=== PATIENT | female | born 1975 ===

== ENCOUNTER 2017-11-02 18:15 | Emergency (ER) | payer SELFPAY ==
[2017-11-02] MEDS ORDERED: Sodium Chloride 0.9% 1,000 ML IV STA (20:22)
--- NOTE | 2017-11-02 20:25 | ED PDOC ---
HPI: Abdomen Time Seen by Provider: 11/02/17 20:14 Chief Complaint (Nursing): Abdominal Pain Chief Complaint (Provider): abdominal pain History Per: Patient History/Exam Limitations: no limitations Onset/Duration Of Symptoms: Days (5), Waxing/Waning Current Symptoms Are (Timing): Still Present Location Of Pain/Discomfort: RUQ, Epigastric Associated Symptoms: Diarrhea Additional Complaint(s): 42 y/o female presents for evaluation of intermittent upper abdominal pain x 5 days. Patient notes pain to be worsened by food. Patient also reports diarrhea x a few weeks. Denies fever, nausea/vomiting, chest pain, shortness of breath, palpitations, recent travel, sick contacts. No medication taken for relief thus far. Past Medical History Reviewed: Historical Data, Nursing Documentation, Vital Signs Vital Signs: Last Vital Signs Temp 98.3 F 11/02/17 18:18 Pulse 83 11/02/17 18:18 Resp 18 11/02/17 18:18 BP 107/69 11/02/17 18:18 Pulse Ox 99 11/02/17 22:31 - Medical History PMH: Gall Bladder Disease (gallstones) - Surgical History Surgical History: No Surg Hx - Family History Family History: States: No Known Family Hx - Living Arrangements Living Arrangements: With Family - Allergies Allergies/Adverse Reactions: Allergies Allergy/AdvReac Type Severity Reaction Status Date / Time No Known Allergies Allergy Verified 11/02/17 18:18 Review of Systems ROS Statement: Except As Marked, All Systems Reviewed And Found Negative Gastrointestinal: Positive for: Abdominal Pain, Diarrhea Physical Exam - Reviewed Nursing Documentation Reviewed: Yes Vital Signs Reviewed: Yes - Physical Exam Appears: Positive for: Well, Non-toxic, No Acute Distress Head Exam: Positive for: ATRAUMATIC, NORMAL INSPECTION, NORMOCEPHALIC Skin: Positive for: Normal Color Eye Exam: Positive for: Normal appearance ENT: Positive for: Normal ENT Inspection Cardiovascular/Chest: Positive for: Regular Rate, Rhythm Respiratory: Positive for: Normal Breath Sounds Gastrointestinal/Abdominal: Positive for: Bowel Sounds, Soft, Tenderness ( epigastric, RUQ) Back: Positive for: Normal Inspection Extremity: Positive for: Normal ROM Neurologic/Psych: Positive for: Alert, Oriented - Laboratory Results Result Diagrams: 11/02/17 21:13 11/02/17 21:13 - ECG O2 Sat by Pulse Oximetry: 99 - Progress ED Course And Treament: labs, urine, RUQ u/s, IV fluids, IV toradol, IV pepcid EXAM: US Abdomen Limited, Right Upper Quadrant CLINICAL HISTORY: 42 years old, female; Pain; Abdominal pain; Epigastric; Additional info: Upper abd pain TECHNIQUE: Real-time ultrasound of the right upper quadrant with image documentation. COMPARISON: No relevant prior studies available. FINDINGS: Liver: Normal echogenicity. No mass. No intrahepatic bile duct dilatation. Gallbladder: Contracted. Multiple gallstones. No wall thickening. No pericholecystic fluid. No sonographic Harvey's sign. Common bile duct: No dilatation. No stones. Pancreas: Unremarkable as visualized. Right kidney: Normal echogenicity. No hydronephrosis. IMPRESSION: 1. Cholelithiasis. On re-eval, patient reports improvement of pain Patient educated on findings, discharged with instructions to f/up [facility] Advised tylenol/ibuprofen PRN pain [place] diet Return precautions given Disposition - Clinical Impression Clinical Impression: Cholelithiasis, Diarrhea - Patient ED Disposition Is Patient to be Admitted: No Counseled Patient/Family Regarding: Studies Performed, Diagnosis, Need For Followup, Rx Given - Disposition Referrals: [facility] [Outside] Disposition: Routine/Home Disposition Time: 00:05 Condition: IMPROVED Instructions: Gallstones, Diarrhea in Adolescents and Adults Print Language: MALDIVIAN
[2017-11-02 21:48] LABS: BASO % 0.4 % (0.0-2.0); EOS # 0.2 K/uL (0.0-0.7); EOS % 2.1 % (0.0-4.0); HEMOGLOBIN 13.7 g/dL (12.0-16.0); LYMPH # 2.9 K/uL (1.0-4.3); LYMPH % 35.3 % (20.0-40.0); MEAN CELL VOLUME 87.5 fl (81.0-99.0); MEAN CORPUSCULAR HEMOGLOBIN 29.5 pg (27.0-31.0); MEAN CORPUSCULAR HGB CONC 33.7 g/dL (33.0-37.0); MEAN PLATELET VOLUME 9.1 fl (7.2-11.7); MONO # 0.8 K/uL (0.0-0.8); MONO % 9.6 % (0.0-10.0); NEUT # 4.2 K/uL (1.8-7.0); NEUT % 52.6 % (50.0-75.0); NRBC % 0.1 % (0.0-0.0); RBC 4.65 Mil/uL (3.80-5.20); RED CELL DISTRIBUTION WIDTH 14.2 % (11.5-14.5); WHITE BLOOD COUNT 8.1 K/uL (4.8-10.8)
[2017-11-02 21:56] LABS: ALB/GLOB RATIO 1.2 (1.0-2.1); ALBUMIN 4.3 g/dL (3.5-5.0); ALT/SGPT 152 U/L (9-52); AST/SGOT 92 U/L (14-36); BLOOD UREA NITROGEN 18 mg/dl (7-17); CALCIUM 9.8 mg/dL (8.4-10.2); GFR NON-AFRICAN AMERICAN > 60; LIPASE 279 U/L (23-300)
[2017-11-02 21:59] LABS: SQUAMOUS EPITHIAL < 1 /hpf (0-5); URINE BACTERIA RARE (<OCC); URINE BILIRUBIN NEGATIVE (NEGATIVE); URINE BLOOD NEGATIVE (NEGATIVE); URINE CALCIUM OXALATE CRYSTALS FEW /hpf (<OCC); URINE CLARITY CLEAR (Clear); URINE COLOR YELLOW (YELLOW); URINE GLUCOSE (UA) 150 mg/dL (Normal); URINE HYALINE CAST 0-2 /hpf (0-2); URINE LEUKOCYTE ESTERASE NEG Leu/uL (Negative); URINE PROTEIN NEGATIVE (NEGATIVE); URINE UROBILINOGEN 0.2-1.0 mg/dL (0.2-1.0)
[2017-11-03 00:20] VITALS: BP 113/69; PULSE 64; RESP 16; TEMP 98; O2SAT 98
--- NOTE | 2017-11-03 09:22 | US ---
Date of service: 11/02/2017 HISTORY: Upper abdominal pain COMPARISON: None. TECHNIQUE: Sonographic evaluation of the right upper quadrant of the abdomen. FINDINGS: LIVER: Measures 15.4 cm in length. There is diffuse increased echogenicity of the liver parenchyma. No mass. No intrahepatic bile duct dilatation. GALLBLADDER: The gallbladder is contracted and packed with multiple gallstones. There is no wall thickening or pericholecystic fluid. The sonographic Harvey's sign is negative. COMMON BILE DUCT: Measures 4.0 mm. No stones. No dilatation. PANCREAS: Unremarkable as visualized. No mass. No ductal dilatation. RIGHT KIDNEY: Measures 10.9 cm in length. Normal echogenicity. No calculus, mass, or hydronephrosis. AORTA: No aneurysmal dilatation. IVC: Unremarkable. OTHER FINDINGS: None . IMPRESSION: Cholelithiasis. Diffuse increased echogenicity in the liver may reflect hepatic steatosis however parenchymal infectious/ inflammatory etiologies cannot be entirely excluded. Clinical and laboratory correlation is advised. A preliminary report was provided by [employer]
== END 2017-11-03 00:20 | disposition home or self-care (01) ==
LOC: H.ER 18:15
DX: K80.20 Calculus of gallbladder without cholecystitis without obstruction (principal); R19.7 Diarrhea, unspecified
CPT/HCPCS: 76705; 80053; 81003; 81025; 83690; 85025; 96361; 96374; 96375; J1885; J7030

== ENCOUNTER 2017-12-17 05:27 | Inpatient (IN) | payer OTHER, SELFPAY ==
[2017-12-17 06:09] LABS: BASO % 0.4 % (0.0-2.0); EOS # 0.1 K/uL (0.0-0.7); EOS % 1.7 % (0.0-4.0); HEMOGLOBIN 14.2 g/dL (12.0-16.0); LYMPH # 2.3 K/uL (1.0-4.3); LYMPH % 28.8 % (20.0-40.0); MEAN CELL VOLUME 85.4 fl (81.0-99.0); MEAN CORPUSCULAR HEMOGLOBIN 29.5 pg (27.0-31.0); MEAN CORPUSCULAR HGB CONC 34.5 g/dL (33.0-37.0); MEAN PLATELET VOLUME 8.8 fl (7.2-11.7); MONO # 0.7 K/uL (0.0-0.8); MONO % 8.7 % (0.0-10.0); NEUT # 4.9 K/uL (1.8-7.0); NEUT % 60.4 % (50.0-75.0); NRBC % 0.1 % (0.0-0.0); RBC 4.81 Mil/uL (3.80-5.20); RED CELL DISTRIBUTION WIDTH 13.3 % (11.5-14.5); WHITE BLOOD COUNT 8.1 K/uL (4.8-10.8)
[2017-12-17 06:21] LABS: ALB/GLOB RATIO 1.3 (1.0-2.1); ALT/SGPT 24 U/L (9-52); AST/SGOT 23 U/L (14-36); BLOOD UREA NITROGEN 9 mg/dl (7-17); CALCIUM 9.1 mg/dL (8.4-10.2); GFR NON-AFRICAN AMERICAN > 60; LIPASE 80 U/L (23-300)
--- NOTE | 2017-12-17 06:21 | ED PDOC ---
HPI: Abdomen Time Seen by Provider: 12/17/17 05:55 Chief Complaint (Nursing): Abdominal Pain Chief Complaint (Provider): abdominal pain History Per: Patient History/Exam Limitations: no limitations Onset/Duration Of Symptoms: Days (x1) Current Symptoms Are (Timing): Still Present Location Of Pain/Discomfort: Epigastric Associated Symptoms: Nausea. denies: Fever, Chills, Vomiting, Diarrhea, Urinary Symptoms Additional Complaint(s): Katey Shultz is a 42 year old female, with a past medical history of cholelithiasis, who presents to the emergency department with epigastric pain associated with nausea ongoing since yesterday. She denies any fever, chills, vomiting, diarrhea or urinary symptoms. No further medical complaints. PMD: Raven Brito Past Medical History Reviewed: Historical Data, Nursing Documentation, Vital Signs Vital Signs: Last Vital Signs Temp 98.6 F 12/17/17 05:41 Pulse 71 12/17/17 05:41 Resp 18 12/17/17 05:41 BP 127/75 12/17/17 05:41 Pulse Ox 100 12/17/17 06:37 - Medical History PMH: Gall Bladder Disease (gallstones) - Surgical History Other surgeries: Cholelithiasis - Family History Family History: States: Unknown Family Hx - Social History Current smoker - smoking cessation education provided: No Alcohol: None Drugs: Denies - Allergies Allergies/Adverse Reactions: Allergies Allergy/AdvReac Type Severity Reaction Status Date / Time No Known Allergies Allergy Verified 11/02/17 18:18 Review of Systems ROS Statement: Except As Marked, All Systems Reviewed And Found Negative Constitutional: Negative for: Fever, Chills Gastrointestinal: Positive for: Nausea, Abdominal Pain (epigastric). Negative for: Vomiting, Diarrhea Genitourinary Female: Negative for: Dysuria, Frequency, Hematuria Physical Exam - Reviewed Nursing Documentation Reviewed: Yes Vital Signs Reviewed: Yes - Physical Exam Appears: Positive for: Uncomfortable Head Exam: Positive for: ATRAUMATIC, NORMAL INSPECTION, NORMOCEPHALIC Skin: Positive for: Normal Color, Warm, Dry Eye Exam: Positive for: Normal appearance, EOMI, PERRL Neck: Positive for: Painless ROM Cardiovascular/Chest: Positive for: Regular Rate, Rhythm. Negative for: Murmur Respiratory: Positive for: Normal Breath Sounds. Negative for: Respiratory Distress Gastrointestinal/Abdominal: Positive for: Tenderness (epigastric and RUQ) Back: Positive for: Normal Inspection. Negative for: L CVA Tenderness, R CVA Tenderness Extremity: Positive for: Normal ROM (upper and lower extremities). Negative for : Deformity, Swelling Neurologic/Psych: Positive for: Alert, Oriented - Laboratory Results Result Diagrams: 12/17/17 06:00 12/17/17 06:00 - ECG O2 Sat by Pulse Oximetry: 100 (RA) Pulse Ox Interpretation: Normal Medical Decision Making Medical Decision Making: Time: 05:55 Initial Impression: 42 y/o female with abdominal pain in setting of known gallstones Initial Plan: --Beta-HCG, Quantitative --CMP --Lipase --Urine dipstick --Urine --Pepcid 20 mg IV --Urinalysis --Gallbladder & Pancreas [US] --Pelvis/Transvag US [US] --Reevaluation 6:30AM POC Preg test is positive; TV U/S and BHCG added 07:00 -Patient will be signed out to Dr. Ruff, pending labs, ultrasounds and re- eval. ----- Scribe Attestation: Documented by Marciano Medina, acting as a scribe for Franky Lara MD. Provider Scribe Attestation: All medical record entries made by the Scribe were at my direction and personally dictated by me. I have reviewed the chart and agree that the record accurately reflects my personal performance of the history, physical exam, medical decision making, and the department course for this patient. I have also personally directed, reviewed, and agree with the discharge instructions and disposition. Disposition - Clinical Impression Clinical Impression: Abdominal pain - Disposition Referrals: Maggi Holland MD [Primary Care Provider] - Disposition: Transfer of Care Disposition Time: 07:00 Condition: STABLE Forms: [employer] ([place]ian) Patient Signed Over To: Duane Ruff III
[2017-12-17 06:33] LABS: SQUAMOUS EPITHIAL 8 /hpf (0-5); URINE BACTERIA RARE (<OCC); URINE BILIRUBIN NEGATIVE (NEGATIVE); URINE BLOOD NEGATIVE (NEGATIVE); URINE CLARITY CLOUDY (Clear); URINE COLOR YELLOW (YELLOW); URINE GLUCOSE (UA) NEG (Normal); URINE LEUKOCYTE ESTERASE SMALL Leu/uL (Negative); URINE PROTEIN NEGATIVE (NEGATIVE); URINE UROBILINOGEN 0.2-1.0 mg/dL (0.2-1.0)
--- NOTE | 2017-12-17 06:57 | ED PDOC ---
- Laboratory Results Result Diagrams: 12/17/17 06:00 12/17/17 06:00 - ECG O2 Sat by Pulse Oximetry: 100 (RA) Medical Decision Making Medical Decision Making: received 7am on endorsement pending US for and GB 09:37 Gallbladder US FINDINGS: LIVER: Measures 16.1 cm in length. There is mild diffuse increased echogenicity of the liver parenchyma. No mass. No intrahepatic bile duct dilatation. GALLBLADDER: The gallbladder is distended. There are multiple gallstones. No wall thickening or pericholecystic fluid. The sonographic Harvey's sign is positive. COMMON BILE DUCT: Measures 5.1 mm. No stones. No dilatation. PANCREAS: The pancreas is enlarged and there is diffuse decreased echogenicity. No mass. No ductal dilatation. RIGHT KIDNEY: Measures 11.9 cm in length. Normal echogenicity. No calculus, mass, or hydronephrosis. AORTA: No aneurysmal dilatation. IVC: Unremarkable. OTHER FINDINGS: None. IMPRESSION: 1. Gallbladder distention and cholelithiasis. The sonographic Harvey's sign is positive. Clinical follow-up is advised as acute cholecystitis cannot be excluded. 2. Mildly enlarged edematous pancreas. Please correlate with serum lipase levels to exclude acute pancreatitis. 3. Mild hepatomegaly. Diffuse increased echogenicity in the liver may reflect hepatic steatosis however parenchymal infectious/ inflammatory etiologies cannot be entirely excluded. Clinical and laboratory correlation is advised. Transvag US FINDINGS: UTERUS: Single Live intrauterine gestation. CRL measures 2.2 cm equivalent to 8 weeks and 6 days of gestational age. Gestational sac diameter measures 3.5 cm equivalent to 8 weeks and 5 days of gestational age. age (Ultrasound estimated): 8 weeks and 5 days Date of delivery (Ultrasound estimated) : 07/24/2018 Heart rate: 168 bpm. Tanya-gestational hemorrhage: There are 2 small areas of subchorionic hemorrhage measuring 1.9 x 1.4 x 0.7 cm and 1.7 x 1.6 x 1.1 cm. Uterus measures 14.7 x 11.2 x 5.2 cm. No mass CERVIX: Long and closed. No cervical abnormality seen. RIGHT OVARY: Measures 2.5 x 2.0 x 1.0 cm. No mass. Normal flow. LEFT OVARY: Measures 2.8 x 3.3 x 2.2 cm. No mass. Normal flow. FREE FLUID: None. OTHER FINDINGS: None. IMPRESSION: Single live intrauterine gestation with mean gestational age of 8 weeks and 5 days. The estimated date of delivery by ultrasound is 07/24/2018. The ultrasound dates correspond with the clinical dates. Two small areas of subchorionic hemorrhage, the larger measures 1.9 x 1.4 x 0.7 cm. Clinical follow-up is advised. Lipase and LFTs normal. WBC normal Re-eval 11am remains in pain, +murphys sign Given US findings, , consult surgery, admit FP/ hospitalist service, d/ w Dr Reese 1115a and surg resident 1110am. Zosyn initiated. Disposition Counseled Patient/Family Regarding: Studies Performed, Diagnosis, Need For Followup - Clinical Impression Clinical Impression: Cholecystitis, - POA Present On Arrival: None - Disposition Referrals: Maggi Holland MD [Primary Care Provider] - Disposition: Admitted as In-Patient Disposition Time: 10:45 Condition: STABLE Forms: [employer] ([place]ian)
--- NOTE | 2017-12-17 09:39 | US ---
Date of service: 12/17/2017 HISTORY: Abdominal pain COMPARISON: 11/02/2017. TECHNIQUE: Sonographic evaluation of the right upper quadrant of the abdomen. FINDINGS: LIVER: Measures 16.1 cm in length. There is mild diffuse increased echogenicity of the liver parenchyma. No mass. No intrahepatic bile duct dilatation. GALLBLADDER: The gallbladder is distended. There are multiple gallstones. No wall thickening or pericholecystic fluid. The sonographic Harvey's sign is positive. COMMON BILE DUCT: Measures 5.1 mm. No stones. No dilatation. PANCREAS: The pancreas is enlarged and there is diffuse decreased echogenicity. No mass. No ductal dilatation. RIGHT KIDNEY: Measures 11.9 cm in length. Normal echogenicity. No calculus, mass, or hydronephrosis. AORTA: No aneurysmal dilatation. IVC: Unremarkable. OTHER FINDINGS: None . IMPRESSION: 1. Gallbladder distention and cholelithiasis. The sonographic Harvey's sign is positive. Clinical follow-up is advised as acute cholecystitis cannot be excluded. 2. Mildly enlarged edematous pancreas. Please correlate with serum lipase levels to exclude acute pancreatitis. 3. Mild hepatomegaly. Diffuse increased echogenicity in the liver may reflect hepatic steatosis however parenchymal infectious/ inflammatory etiologies cannot be entirely excluded. Clinical and laboratory correlation is advised.
--- NOTE | 2017-12-17 09:59 | US ---
Date of service: 12/17/2017 PROCEDURE: OB Pelvic Ultrasound HISTORY: abd pain/preg COMPARISON: None available. FINDINGS: UTERUS: Single Live intrauterine gestation. CRL measures 2.2 cm equivalent to 8 weeks and 6 days of gestational age. Gestational sac diameter measures 3.5 cm equivalent to 8 weeks and 5 days of gestational age. age (Ultrasound estimated): 8 weeks and 5 days Date of delivery (Ultrasound estimated) : 07/24/2018 Heart rate: 168 bpm. Tanya-gestational hemorrhage: There are 2 small areas of subchorionic hemorrhage measuring 1.9 x 1.4 x 0.7 cm and 1.7 x 1.6 x 1.1 cm. Uterus measures 14.7 x 11.2 x 5.2 cm. No mass CERVIX: Long and closed. No cervical abnormality seen. RIGHT OVARY: Measures 2.5 x 2.0 x 1.0 cm. No mass. Normal flow. LEFT OVARY: Measures 2.8 x 3.3 x 2.2 cm. No mass. Normal flow. FREE FLUID: None. OTHER FINDINGS: None. IMPRESSION: Single live intrauterine gestation with mean gestational age of 8 weeks and 5 days. The estimated date of delivery by ultrasound is 07/24/2018. The ultrasound dates correspond with the clinical dates. Two small areas of subchorionic hemorrhage, the larger measures 1.9 x 1.4 x 0.7 cm. Clinical follow-up is advised.
[2017-12-17] MEDS ORDERED: Piperacillin/Tazobact 3.375 GM in Sodium Chloride 0.9% 100 ML IVPB STA (11:14)
[2017-12-17] MEDS ORDERED: Piperacillin/Tazobact 3.375 gm Inj IVPB ONE (11:30)
--- NOTE | 2017-12-17 12:00 | CP.PCM.CON ---
History of Present Illness - History of Present Illness History of Present Illness: General Surgery Consult Re: Cholelithiasis HPI: 42F who is 8 weeks presented to ED complaining of epigastric and RUQ pain since yesterday. Radiates to R back. She had similar pain 1 month ago and was diagnosed with cholelithiasis at that time. + nausea, bilious emesis, and diarrhea. Denies fever, chills, SOB, chest pain, urinary symptoms. PMH: Denies PSH: Denies FH: non contributory SH: No tobacco, EtOH, or Drug use All: NKDA Meds: Denies Review of Systems - Review of Systems All systems: reviewed and no additional remarkable complaints except (as per HPI ) Past Patient History - Past Social History Alcohol: None Drugs: Denies - GASTROINTESTINAL Hx Gall Bladder Disease: Yes (gallstones) - PSYCHIATRIC Hx Substance Use: No - SURGICAL HISTORY Hx Surgeries: No - ANESTHESIA Hx Anesthesia: No Meds Allergies/Adverse Reactions: Allergies Allergy/AdvReac Type Severity Reaction Status Date / Time No Known Allergies Allergy Verified 11/02/17 18:18 - Medications Medications: Current Medications Piperacillin Sod/Tazobactam (Sod 3.375 gm/ Sodium Chloride) 100 mls @ 100 mls/ hr IVPB STAT STA PRN Reason: Protocol Stop: 12/17/17 12:13 Last Admin: 12/17/17 11:37 Dose: 100 mls/hr Physical Exam - Constitutional Appears: Non-toxic, No Acute Distress - Head Exam Head Exam: ATRAUMATIC, NORMOCEPHALIC - Eye Exam Eye Exam: EOMI. absent: Scleral icterus - ENT Exam ENT Exam: Mucous Membranes Moist Additional comments: trachea midline - Neck Exam Neck exam: Positive for: Full Rom. Negative for: Tenderness - Respiratory Exam Respiratory Exam: absent: Respiratory Distress, NORMAL BREATHING PATTERN - Cardiovascular Exam Cardiovascular Exam: RRR, +S1, +S2 - GI/Abdominal Exam GI & Abdominal Exam: Soft, Tenderness (in epigastrum and RUQ). absent: Distended, Firm, Guarding, Rebound, Rigid Additional comments: + murphys - Rectal Exam Rectal Exam: Deferred - Extremities Exam Extremities exam: Positive for: pedal pulses present. Negative for: calf tenderness, pedal edema, tenderness - Back Exam Back exam: absent: CVA tenderness (L), CVA tenderness (R) - Neurological Exam Neurological exam: Alert, Oriented x3 - Skin Skin Exam: Dry, Warm Results - Vital Signs Recent Vital Signs: Last Vital Signs Temp 98.1 F 12/17/17 08:45 Pulse 70 12/17/17 08:45 Resp 18 12/17/17 08:45 BP 129/74 12/17/17 08:45 Pulse Ox 100 12/17/17 11:18 - Labs Result Diagrams: 12/17/17 06:00 12/17/17 06:00 Labs: Laboratory Results - last 24 hr 12/17/17 12/17/17 12/17/17 06:00 06:00 06:11 WBC 8.1 RBC 4.81 Hgb 14.2 Hct 41.0 MCV 85.4 D MCH 29.5 MCHC 34.5 RDW 13.3 Plt Count 189 MPV 8.8 Neut % (Auto) 60.4 Lymph % (Auto) 28.8 [place] % (Auto) 8.7 Eos % (Auto) 1.7 Baso % (Auto) 0.4 Neut # (Auto) 4.9 Lymph # (Auto) 2.3 [place] # (Auto) 0.7 Eos # (Auto) 0.1 Baso # (Auto) 0.0 Sodium 138 Potassium 3.9 Chloride 107 Carbon Dioxide 23 Anion Gap 12 BUN 9 Creatinine 0.4 L Est GFR ( Amer) > 60 Est GFR (Non-Af Amer) > 60 Random Glucose 146 H Calcium 9.1 Total Bilirubin 0.5 AST 23 ALT 24 Alkaline Phosphatase 95 Total Protein 7.1 Albumin 4.0 Globulin 3.2 Albumin/Globulin Ratio 1.3 Lipase 80 Beta HCG, Quant Urine Color Yellow Urine Clarity Cloudy Urine pH 6.0 Ur Specific [place] 1.018 Urine Protein Negative Urine Glucose (UA) Neg Urine Ketones Negative Urine Blood Negative Urine Nitrate Negative Urine Bilirubin Negative Urine Urobilinogen 0.2-1.0 Ur Leukocyte Esterase Small Urine RBC (Auto) 1 Urine Microscopic WBC 3 Ur Squamous Epith Cells 8 H Urine Bacteria Rare 12/17/17 06:22 WBC RBC Hgb Hct MCV MCH MCHC RDW Plt Count MPV Neut % (Auto) Lymph % (Auto) [place] % (Auto) Eos % (Auto) Baso % (Auto) Neut # (Auto) Lymph # (Auto) [place] # (Auto) Eos # (Auto) Baso # (Auto) Sodium Potassium Chloride Carbon Dioxide Anion Gap BUN Creatinine Est GFR ( Amer) Est GFR (Non-Af Amer) Random Glucose Calcium Total Bilirubin AST ALT Alkaline Phosphatase Total Protein Albumin Globulin Albumin/Globulin Ratio Lipase Beta HCG, Quant 19723.00 Urine Color Urine Clarity Urine pH Ur Specific [place] Urine Protein Urine Glucose (UA) Urine Ketones Urine Blood Urine Nitrate Urine Bilirubin Urine Urobilinogen Ur Leukocyte Esterase Urine RBC (Auto) Urine Microscopic WBC Ur Squamous Epith Cells Urine Bacteria - Imaging and Cardiology US - abdomen Status: Image reviewed by me, Report reviewed by me Assessment & Plan - Assessment and Plan (Free Text) Assessment: 42F, 8 weeks , with biliary colic and choledocolithiasis Plan: NPO until pain resolves, then may ADAT Analgesia IVF Zofran Rec OB to see No plan for surgery at this time unless pt worsens. Will monitor pt while in hospital. D/W Dr. Leonard Lutz PGY4
--- NOTE | 2017-12-17 12:37 | CP.PCM.HP ---
History of Present Illness - History of Present Illness History of Present Illness: 42 year old IUP at 8 weeks and 5 days GA with pmxh of gestational DMII presents to [facility] ED with complaints of intermittent epigastric and RUQ abominal pain since last night. Patient reports pain is intermittent, radiates to back, 8/10, worse with eating food and relief with pepto bismol. Reports intermittent nausea and had one episode of bilious emesis today. Patient had similar episode about a month ago and was diagnosed with cholecystitis but no surgical intervention was done at that time. Reports chronic loose BM 3x/day for 6 months. Denies any blood or mucus in stool. Denies any fever but reports to have chills last night. Denies chest pain, dyspnea, headache, dizziness, hematuria or dysuria. LMP: Last week of September,. ROS: all 12 systems reviewed and negative except as mentioned in HPI PMD: [facility] PMHx: gestational DMII, obesity PSHX: denies Social hx: denies smoking cigarettes, drinking EtOH or using drugs. Family hx: maternal uncles: DMII Allergies: NKDA Medication: none ED course: Vitals: BP 129/74, HR 70, RR 18, temp 98.1, pulse ox 100% CBC: WNL CMP: unremarkable Beta-HCG: positive for Medications: pepcid 20 mg ivp. Zosyn 3.375 gm ivp Gallbladder US: IMPRESSION: 1. Gallbladder distention and cholelithiasis. The sonographic Harvey's sign is positive. Clinical follow-up is advised as acute cholecystitis cannot be excluded. 2. Mildly enlarged edematous pancreas. Please correlate with serum lipase levels to exclude acute pancreatitis. 3. Mild hepatomegaly. Diffuse increased echogenicity in the liver may reflect hepatic steatosis however parenchymal infectious/ inflammatory etiologies cannot be entirely excluded. Clinical and laboratory correlation is advised. Transvaginal US: IMPRESSION: Single live intrauterine gestation with mean gestational age of 8 weeks and 5 days. The estimated date of delivery by ultrasound is 07/24/2018. The ultrasound dates correspond with the clinical dates. Two small areas of subchorionic hemorrhage, the larger measures 1.9 x 1.4 x 0.7 cm. Present on Admission - Present on Admission Any Indicators Present on Admission: No Review of Systems - Review of Systems All systems: reviewed and no additional remarkable complaints except (as mentioned in HPI) Past Patient History - Past Social History Alcohol: None Drugs: Denies - GASTROINTESTINAL Hx Gall Bladder Disease: Yes (gallstones) - PSYCHIATRIC Hx Substance Use: No - SURGICAL HISTORY Hx Surgeries: No - ANESTHESIA Hx Anesthesia: No Meds Allergies/Adverse Reactions: Allergies Allergy/AdvReac Type Severity Reaction Status Date / Time No Known Allergies Allergy Verified 11/02/17 18:18 Physical Exam - Constitutional Appears: Non-toxic, No Acute Distress - Head Exam Head Exam: ATRAUMATIC, NORMOCEPHALIC - Eye Exam Eye Exam: EOMI, Normal appearance - ENT Exam ENT Exam: Mucous Membranes Moist - Neck Exam Neck exam: Positive for: Full Rom, Normal Inspection. Negative for: Meningismus - Respiratory Exam Respiratory Exam: Clear to Auscultation Bilateral, NORMAL BREATHING PATTERN. absent: Rales, Rhonchi, Wheezes - Cardiovascular Exam Cardiovascular Exam: REGULAR RHYTHM, RRR, +S1, +S2 - GI/Abdominal Exam GI & Abdominal Exam: Normal Bowel Sounds, Soft. absent: Distended, Guarding, Organomegaly, Rebound Additional comments: Moderate tenderness at the epigastric and RUQ. + Harvey's sign. No rebound tenderness or guarding. - Extremities Exam Extremities exam: Positive for: normal capillary refill, normal inspection, pedal pulses present. Negative for: pedal edema - Back Exam Back exam: absent: CVA tenderness (L), CVA tenderness (R) - Neurological Exam Neurological exam: Alert, Oriented x3 - Psychiatric Exam Psychiatric exam: Normal Affect, Normal Mood - Skin Skin Exam: Normal Color, Warm Results - Vital Signs Recent Vital Signs: Last Vital Signs Temp 98.1 F 12/17/17 08:45 Pulse 70 12/17/17 08:45 Resp 18 12/17/17 08:45 BP 129/74 12/17/17 08:45 Pulse Ox 100 12/17/17 11:18 - Labs Result Diagrams: 12/17/17 06:00 12/17/17 06:00 Labs: Laboratory Results - last 24 hr 12/17/17 12/17/17 12/17/17 06:00 06:00 06:11 WBC 8.1 RBC 4.81 Hgb 14.2 Hct 41.0 MCV 85.4 D MCH 29.5 MCHC 34.5 RDW 13.3 Plt Count 189 MPV 8.8 Neut % (Auto) 60.4 Lymph % (Auto) 28.8 [place] % (Auto) 8.7 Eos % (Auto) 1.7 Baso % (Auto) 0.4 Neut # (Auto) 4.9 Lymph # (Auto) 2.3 [place] # (Auto) 0.7 Eos # (Auto) 0.1 Baso # (Auto) 0.0 Sodium 138 Potassium 3.9 Chloride 107 Carbon Dioxide 23 Anion Gap 12 BUN 9 Creatinine 0.4 L Est GFR ( Amer) > 60 Est GFR (Non-Af Amer) > 60 Random Glucose 146 H Calcium 9.1 Total Bilirubin 0.5 AST 23 ALT 24 Alkaline Phosphatase 95 Total Protein 7.1 Albumin 4.0 Globulin 3.2 Albumin/Globulin Ratio 1.3 Lipase 80 Beta HCG, Quant Urine Color Yellow Urine Clarity Cloudy Urine pH 6.0 Ur Specific [place] 1.018 Urine Protein Negative Urine Glucose (UA) Neg Urine Ketones Negative Urine Blood Negative Urine Nitrate Negative Urine Bilirubin Negative Urine Urobilinogen 0.2-1.0 Ur Leukocyte Esterase Small Urine RBC (Auto) 1 Urine Microscopic WBC 3 Ur Squamous Epith Cells 8 H Urine Bacteria Rare 12/17/17 06:22 WBC RBC Hgb Hct MCV MCH MCHC RDW Plt Count MPV Neut % (Auto) Lymph % (Auto) [place] % (Auto) Eos % (Auto) Baso % (Auto) Neut # (Auto) Lymph # (Auto) [place] # (Auto) Eos # (Auto) Baso # (Auto) Sodium Potassium Chloride Carbon Dioxide Anion Gap BUN Creatinine Est GFR ( Amer) Est GFR (Non-Af Amer) Random Glucose Calcium Total Bilirubin AST ALT Alkaline Phosphatase Total Protein Albumin Globulin Albumin/Globulin Ratio Lipase Beta HCG, Quant 02932.00 Urine Color Urine Clarity Urine pH Ur Specific [place] Urine Protein Urine Glucose (UA) Urine Ketones Urine Blood Urine Nitrate Urine Bilirubin Urine Urobilinogen Ur Leukocyte Esterase Urine RBC (Auto) Urine Microscopic WBC Ur Squamous Epith Cells Urine Bacteria Assessment & Plan - Assessment and Plan (Free Text) Assessment: Assessment and Plan: 42 yo IUP at 8 weeks and 5 days GA admitted for acute cholecystitis and pain management. Acute cholecystitis: -Stable vs, afebrile -wbc: 8.1 -Gallbladder US: IMPRESSION: Gallbladder distention and cholelithiasis. The sonographic Harvey's sign is positive. -Surgery consult: Dr. Valle -NPO -Pain management: morphine and hydromorphone -Zofran PRN for nausea -Further managment as per surgery team. First trimester pregancy -Unplanned but welcomed -Transvaginal US: IMPRESSION: Single live intrauterine gestation with mean gestational age of 8 weeks and 5 days. The estimated date of delivery by ultrasound is 07/24/2018. The ultrasound dates correspond with the clinical dates. Two small areas of subchorionic hemorrhage, the larger measures 1.9 x 1.4 x 0.7 cm. Chronic Diarrhea -lipase 80 -f/u stool culture, O&P, stool fat Hx gestional DMII/ ? new onset DMII -HbA1c 7.3 on 12/14/17. -Monitor blood glucose DVT prophylaxis: -SCDs -Encourage ambulation
[2017-12-17] MEDS: Sodium Chloride 0.9% 1,000 ML IV SCH (13:42)
[2017-12-17] MEDS: Potassium Ch 20mEq in D5-1/2NS 1,000 ML IV SCH (13:45)
[2017-12-17 16:24] VITALS: O2SAT 98
--- NOTE | 2017-12-17 17:39 | CP.PCM.CON ---
History of Present Illness - History of Present Illness History of Present Illness: 42 y/o , with IUP of 8.5wks based on US done today presents to ED with epigastric and RUQ pain that started last night. Patient also reports associated nausea, loose stool and vomiting x 1. Abdminal pain is intermittent, radiates to back and worse with eating food. Patient had similar episode 1 month ago which was managed conservatively with pain medications. Denies any vaginal discharge, bleeding, lower abdominal pain, dysuria, fever, CP or SOB. LMP in early (doesn't remember exact date). Unplanned . Patient would like to continue with . No care till now for this . Not taking any vitamins. PObHx: 6 , H/O gestational DM in previous . 1 day after . Cause unknown. PgynHx: + chlamydia in 2nd , Treated with meds, Menstrual periods irregular, lasts 5-8 days PMD: [facility] PMHx: Gestational DMII, obesity PSHX: denies Family hx: 2 maternal uncles: DM II Allergies: NKDA Medication: none Social hx: denies smoking cigarettes, drinking EtOH or using drugs. Review of Systems - Gastrointestinal Gastrointestinal: Abdominal Pain, Loose Stools - Genitourinary Genitourinary: absent: Change in Urinary Stream, Difficulty Urinating, Dysuria, Hematuria - Reproductive: Female Reproductive:Female: Cycle Variable. absent: Abnormal Vaginal Bleeding, Vaginal Discharge - Menstruation Menstruation: Cycle Variable. absent: Abnormal Vaginal Bleeding Past Patient History - Past Social History Alcohol: None Drugs: Denies - CARDIAC Hx Cardiac Disorders: No - PULMONARY Hx Respiratory Disorders: No - NEUROLOGICAL Hx Neurological Disorder: No - HEENT Hx HEENT Problems: No - RENAL Hx Chronic Kidney Disease: No - ENDOCRINE/METABOLIC Hx Endocrine Disorders: No - HEMATOLOGICAL/ONCOLOGICAL Hx Blood Disorders: No - INTEGUMENTARY Hx Dermatological Problems: No - MUSCULOSKELETAL/RHEUMATOLOGICAL Hx Musculoskeletal Disorders: No - GASTROINTESTINAL Hx Gall Bladder Disease: Yes (gallstones) - GENITOURINARY/GYNECOLOGICAL Hx Genitourinary Disorders: No - PSYCHIATRIC Hx Substance Use: No - SURGICAL HISTORY Hx Surgeries: No - ANESTHESIA Hx Anesthesia: No Meds Allergies/Adverse Reactions: Allergies Allergy/AdvReac Type Severity Reaction Status Date / Time No Known Allergies Allergy Verified 11/02/17 18:18 - Medications Medications: Current Medications Hydromorphone HCl (Dilaudid) 0.5 mg IVP Q3 PRN PRN Reason: Pain, moderate (4-7) Last Admin: 12/17/17 14:23 Dose: 0.5 mg Potassium Chloride/Dextrose/Sod Cl (Potassium Chl 20 Meq In D5-1/2ns) 1,000 mls @ 100 mls/hr IV .Q10H [facility] Stop: 12/18/17 12:09 Last Admin: 12/17/17 13:45 Dose: Not Given Sodium Chloride (Sodium Chloride 0.9%) 1,000 mls @ 125 mls/hr IV .Q8H [facility] Last Admin: 12/17/17 13:42 Dose: 125 mls/hr Morphine Sulfate (Morphine) 2 mg IVP Q6 PRN PRN Reason: Pain, severe (8-10) Ondansetron HCl (Zofran Inj) 4 mg IVP Q6 PRN PRN Reason: Nausea/Vomiting Physical Exam - Constitutional Appears: Well, No Acute Distress - Head Exam Head Exam: ATRAUMATIC, NORMAL INSPECTION, NORMOCEPHALIC - Eye Exam Eye Exam: Normal appearance, PERRL - ENT Exam ENT Exam: Mucous Membranes Moist - Respiratory Exam Respiratory Exam: Clear to Auscultation Bilateral, NORMAL BREATHING PATTERN. absent: Rales, Rhonchi, Wheezes - Cardiovascular Exam Cardiovascular Exam: REGULAR RHYTHM. absent: +S1, +S2 - GI/Abdominal Exam GI & Abdominal Exam: Normal Bowel Sounds, Tenderness. absent: Distended, Firm - Extremities Exam Extremities exam: Negative for: calf tenderness, pedal edema - Neurological Exam Neurological exam: Alert, Oriented x3 - Psychiatric Exam Psychiatric exam: Normal Affect, Normal Mood - Skin Skin Exam: Dry, Intact, Normal Color Results - Vital Signs Recent Vital Signs: Last Vital Signs Temp 98.3 F 12/17/17 16:23 Pulse 63 12/17/17 16:23 Resp 20 12/17/17 16:23 BP 105/67 12/17/17 16:23 Pulse Ox 98 12/17/17 16:23 - Labs Result Diagrams: 12/17/17 06:00 12/17/17 06:00 Labs: Laboratory Results - last 24 hr 12/17/17 12/17/17 12/17/17 06:00 06:00 06:11 WBC 8.1 RBC 4.81 Hgb 14.2 Hct 41.0 MCV 85.4 D MCH 29.5 MCHC 34.5 RDW 13.3 Plt Count 189 MPV 8.8 Neut % (Auto) 60.4 Lymph % (Auto) 28.8 [place] % (Auto) 8.7 Eos % (Auto) 1.7 Baso % (Auto) 0.4 Neut # (Auto) 4.9 Lymph # (Auto) 2.3 [place] # (Auto) 0.7 Eos # (Auto) 0.1 Baso # (Auto) 0.0 Sodium 138 Potassium 3.9 Chloride 107 Carbon Dioxide 23 Anion Gap 12 BUN 9 Creatinine 0.4 L Est GFR ( Amer) > 60 Est GFR (Non-Af Amer) > 60 Random Glucose 146 H Calcium 9.1 Total Bilirubin 0.5 AST 23 ALT 24 Alkaline Phosphatase 95 Total Protein 7.1 Albumin 4.0 Globulin 3.2 Albumin/Globulin Ratio 1.3 Lipase 80 Beta HCG, Quant Urine Color Yellow Urine Clarity Cloudy Urine pH 6.0 Ur Specific [place] 1.018 Urine Protein Negative Urine Glucose (UA) Neg Urine Ketones Negative Urine Blood Negative Urine Nitrate Negative Urine Bilirubin Negative Urine Urobilinogen 0.2-1.0 Ur Leukocyte Esterase Small Urine RBC (Auto) 1 Urine Microscopic WBC 3 Ur Squamous Epith Cells 8 H Urine Bacteria Rare 12/17/17 06:22 WBC RBC Hgb Hct MCV MCH MCHC RDW Plt Count MPV Neut % (Auto) Lymph % (Auto) [place] % (Auto) Eos % (Auto) Baso % (Auto) Neut # (Auto) Lymph # (Auto) [place] # (Auto) Eos # (Auto) Baso # (Auto) Sodium Potassium Chloride Carbon Dioxide Anion Gap BUN Creatinine Est GFR ( Amer) Est GFR (Non-Af Amer) Random Glucose Calcium Total Bilirubin AST ALT Alkaline Phosphatase Total Protein Albumin Globulin Albumin/Globulin Ratio Lipase Beta HCG, Quant 56257.00 Urine Color Urine Clarity Urine pH Ur Specific [place] Urine Protein Urine Glucose (UA) Urine Ketones Urine Blood Urine Nitrate Urine Bilirubin Urine Urobilinogen Ur Leukocyte Esterase Urine RBC (Auto) Urine Microscopic WBC Ur Squamous Epith Cells Urine Bacteria Assessment & Plan - Assessment and Plan (Free Text) Assessment: 42 y/o , with IUP of 8.5wks based on US done today presents to ED with epigastric and RUQ pain. Plan: First Trimester - 8.5 wks based on US, stable vs - Unplanned - B HCG - 10281 - TV US 12/17/17 : Single live intrauterine gestation 8w5d. LINDA estimated by US is 07/24/2018. The ultrasound dates correspond with the clinical dates. Two small areas of subchorionic hemorrhage, the larger measures 1.9 x 1.4 x 0.7 cm. - Start vitamins. - Patient advised to F/U with [facility] for care after discharge. choledocolithiasis and biliary colic - Manage as per surgery
[2017-12-17 23:45] VITALS: PULSE 68; TEMP 98.6
[2017-12-18 05:52] LABS: HEMOGLOBIN 12.9 g/dL (12.0-16.0); MEAN CELL VOLUME 86.2 fl (81.0-99.0); MEAN CORPUSCULAR HEMOGLOBIN 29.1 pg (27.0-31.0); MEAN CORPUSCULAR HGB CONC 33.8 g/dL (33.0-37.0); RBC 4.44 Mil/uL (3.80-5.20); RED CELL DISTRIBUTION WIDTH 13.5 % (11.5-14.5); WHITE BLOOD COUNT 7.4 K/uL (4.8-10.8)
[2017-12-18 06:30] LABS: ALB/GLOB RATIO 1.2 (1.0-2.1); ALBUMIN 3.4 g/dL (3.5-5.0); ALT/SGPT 27 U/L (9-52); AST/SGOT 18 U/L (14-36); BLOOD UREA NITROGEN 6 mg/dl (7-17); CALCIUM 8.4 mg/dL (8.4-10.2); GFR NON-AFRICAN AMERICAN > 60
[2017-12-18 08:10] VITALS: BP 93/57; RESP 19
--- NOTE | 2017-12-18 08:12 | CP.PCM.PN ---
Subjective - Date & Time of Evaluation Date of Evaluation: 12/18/17 Time of Evaluation: 07:00 - Subjective Subjective: General Surgery Pt Seen and examined. no issues overnight. Feeling better today, now with only mild tenderness on palpation. Denies Nausea/vomiting, fever/chills. Ambulating, maintaining NPO. Objective - Vital Signs/Intake and Output Vital Signs (last 24 hours): Temp Pulse Resp BP Pulse Ox 98.6 F 68 18 97/59 L 98 12/18/17 01:00 12/18/17 01:00 12/18/17 01:00 12/18/17 01:00 12/18/17 01:00 - Medications Medications: Current Medications Hydromorphone HCl (Dilaudid) 0.5 mg IVP Q3 PRN PRN Reason: Pain, moderate (4-7) Last Admin: 12/17/17 14:23 Dose: 0.5 mg Potassium Chloride/Dextrose/Sod Cl (Potassium Chl 20 Meq In D5-1/2ns) 1,000 mls @ 100 mls/hr IV .Q10H [facility] Stop: 12/18/17 12:09 Last Admin: 12/17/17 13:45 Dose: Not Given Sodium Chloride (Sodium Chloride 0.9%) 1,000 mls @ 125 mls/hr IV .Q8H [facility] Last Admin: 12/17/17 13:42 Dose: 125 mls/hr Morphine Sulfate (Morphine) 2 mg IVP Q6 PRN PRN Reason: Pain, severe (8-10) Ondansetron HCl (Zofran Inj) 4 mg IVP Q6 PRN PRN Reason: Nausea/Vomiting - Labs Labs: 12/18/17 05:20 12/18/17 05:20 - Constitutional Appears: Non-toxic, No Acute Distress - Head Exam Head Exam: ATRAUMATIC, NORMOCEPHALIC - Eye Exam Eye Exam: EOMI. absent: Scleral icterus - Respiratory Exam Respiratory Exam: NORMAL BREATHING PATTERN. absent: Respiratory Distress - Cardiovascular Exam Cardiovascular Exam: RRR, +S1, +S2 - GI/Abdominal Exam GI & Abdominal Exam: Soft, Tenderness (mild in epigastrum and RUQ). absent: Distended, Guarding, Rigid, Rebound - Extremities Exam Extremities Exam: absent: Calf Tenderness, Pedal Edema - Neurological Exam Neurological Exam: Alert, Awake, Oriented x3 - Skin Skin Exam: Dry, Warm Assessment and Plan - Assessment and Plan (Free Text) Assessment: 42F, 8 weeks , with biliary colic Plan: Continue NPO until pain resolves Continue Analgesia Continue IVF No plan for surgery at this time unless pt worsens. Will monitor pt while in hospital. D/W Dr. Leonard Lutz PGY4
--- NOTE | 2017-12-18 08:23 | CP.PCM.PN ---
Subjective - Date & Time of Evaluation Date of Evaluation: 12/18/17 Time of Evaluation: 08:05 Objective - Vital Signs/Intake and Output Vital Signs (last 24 hours): Temp Pulse Resp BP Pulse Ox 98.6 F 68 19 93/57 L 98 12/18/17 08:09 12/18/17 08:09 12/18/17 08:09 12/18/17 08:09 12/18/17 08:09 - Medications Medications: Current Medications Hydromorphone HCl (Dilaudid) 0.5 mg IVP Q3 PRN PRN Reason: Pain, moderate (4-7) Last Admin: 12/17/17 14:23 Dose: 0.5 mg Potassium Chloride/Dextrose/Sod Cl (Potassium Chl 20 Meq In D5-1/2ns) 1,000 mls @ 100 mls/hr IV .Q10H [facility] Stop: 12/18/17 12:09 Last Admin: 12/17/17 13:45 Dose: Not Given Sodium Chloride (Sodium Chloride 0.9%) 1,000 mls @ 125 mls/hr IV .Q8H [facility] Last Admin: 12/17/17 13:42 Dose: 125 mls/hr Morphine Sulfate (Morphine) 2 mg IVP Q6 PRN PRN Reason: Pain, severe (8-10) Ondansetron HCl (Zofran Inj) 4 mg IVP Q6 PRN PRN Reason: Nausea/Vomiting - Labs Labs: 12/18/17 05:20 12/18/17 05:20
[2017-12-18] MEDS: Potassium Ch 20mEq in D5-1/2NS 1,000 ML IV SCH (08:26)
[2017-12-18] MEDS: Sodium Chloride 0.9% 1,000 ML IV SCH (08:27)
--- NOTE | 2017-12-18 10:00 | CP.PCM.DIS ---
Provider - Provider Date of Admission: 12/17/17 11:11 Attending physician: Bear Meredith MD Primary care physician: Maggi Holland MD Time Spent in preparation of Discharge (in minutes): 25 Diagnosis - Discharge Diagnosis (1) Cholelithiasis Status: Chronic (2) Biliary colic symptom Status: Resolved (3) Diabetes mellitus Status: Acute (4) First trimester Status: Acute (5) Chronic diarrhea Status: Chronic Hospital Course - Lab Results Lab Results: Most Recent Lab Values WBC 7.4 K/uL (4.8-10.8) 12/18/17 05:20 RBC 4.44 Mil/uL (3.80-5.20) 12/18/17 05:20 Hgb 12.9 g/dL (12.0-16.0) 12/18/17 05:20 Hct 38.3 % (34.0-47.0) 12/18/17 05:20 MCV 86.2 fl (81.0-99.0) 12/18/17 05:20 MCH 29.1 pg (27.0-31.0) 12/18/17 05:20 MCHC 33.8 g/dL (33.0-37.0) 12/18/17 05:20 RDW 13.5 % (11.5-14.5) 12/18/17 05:20 Plt Count 191 K/uL (130-400) 12/18/17 05:20 MPV 8.8 fl (7.2-11.7) 12/17/17 06:00 Neut % (Auto) 60.4 % (50.0-75.0) 12/17/17 06:00 Lymph % (Auto) 28.8 % (20.0-40.0) 12/17/17 06:00 [place] % (Auto) 8.7 % (0.0-10.0) 12/17/17 06:00 Eos % (Auto) 1.7 % (0.0-4.0) 12/17/17 06:00 Baso % (Auto) 0.4 % (0.0-2.0) 12/17/17 06:00 Neut # (Auto) 4.9 K/uL (1.8-7.0) 12/17/17 06:00 Lymph # (Auto) 2.3 K/uL (1.0-4.3) 12/17/17 06:00 [place] # (Auto) 0.7 K/uL (0.0-0.8) 12/17/17 06:00 Eos # (Auto) 0.1 K/uL (0.0-0.7) 12/17/17 06:00 Baso # (Auto) 0.0 K/uL (0.0-0.2) 12/17/17 06:00 Sodium 138 mmol/l (132-148) 12/18/17 05:20 Potassium 3.5 MMOL/L (3.6-5.0) L 12/18/17 05:20 Chloride 106 mmol/L (98-107) 12/18/17 05:20 Carbon Dioxide 24 mmol/L (22-30) 12/18/17 05:20 Anion Gap 12 (10-20) 12/18/17 05:20 BUN 6 mg/dl (7-17) L 12/18/17 05:20 Creatinine 0.4 mg/dl (0.7-1.2) L 12/18/17 05:20 Est GFR ( Amer) > 60 12/18/17 05:20 Est GFR (Non-Af Amer) > 60 12/18/17 05:20 POC Glucose (mg/dL) 119 mg/dL (65-110) H 12/18/17 05:15 Random Glucose 117 mg/dL (65-105) H 12/18/17 05:20 Calcium 8.4 mg/dL (8.4-10.2) 12/18/17 05:20 Total Bilirubin 0.5 mg/dl (0.2-1.3) 12/18/17 05:20 AST 18 U/L (14-36) 12/18/17 05:20 ALT 27 U/L (9-52) 12/18/17 05:20 Alkaline Phosphatase 68 U/L (38-126) 12/18/17 05:20 Total Protein 6.2 G/DL (6.3-8.2) L 12/18/17 05:20 Albumin 3.4 g/dL (3.5-5.0) L 12/18/17 05:20 Globulin 2.8 gm/dL (2.2-3.9) 12/18/17 05:20 Albumin/Globulin Ratio 1.2 (1.0-2.1) 12/18/17 05:20 Lipase 80 U/L (23-300) 12/17/17 06:00 Beta HCG, Quant 76466.00 mIU/mL 12/17/17 06:22 Urine Color Yellow (YELLOW) 12/17/17 06:11 Urine Clarity Cloudy (Clear) 12/17/17 06:11 Urine pH 6.0 (5.0-8.0) 12/17/17 06:11 Ur Specific [place] 1.018 (1.003-1.030) 12/17/17 06:11 Urine Protein Negative mg/dL (NEGATIVE) 12/17/17 06:11 Urine Glucose (UA) Neg mg/dL (Normal) 12/17/17 06:11 Urine Ketones Negative mg/dL (NEGATIVE) 12/17/17 06:11 Urine Blood Negative (NEGATIVE) 12/17/17 06:11 Urine Nitrate Negative (NEGATIVE) 12/17/17 06:11 Urine Bilirubin Negative (NEGATIVE) 12/17/17 06:11 Urine Urobilinogen 0.2-1.0 mg/dL (0.2-1.0) 12/17/17 06:11 Ur Leukocyte Esterase Small [place]/uL (Negative) 12/17/17 06:11 Urine RBC (Auto) 1 /hpf (0-3) 12/17/17 06:11 Urine Microscopic WBC 3 /hpf (0-5) 12/17/17 06:11 Ur Squamous Epith Cells 8 /hpf (0-5) H 12/17/17 06:11 Urine Bacteria Rare (<OCC) 12/17/17 06:11 - Hospital Course Hospital Course: 42 year old female with pmxh of gestational DMII and cholelithiasis presents to [facility] ED yesterday with complaints of intermittent epigastric and RUQ abominal pain since last night. Patient reports pain is intermittent, radiates to back, 8/10, worse with eating food and relief with pepto bismol. Reports intermittent nausea and had one episode of bilious emesis. Patient had similar episode about a month ago and was diagnosed with choelithiasis but no surgical intervention was done at that time. Denies fever, chills, chest pain or dyspnea. Gallbladder US yesterday showed gallbladder distention and cholelithiasis. The sonographic Harvey's sign is positive. Clinical follow-up is advised as acute cholecystitis cannot be excluded. Patient was admitted to evaluate for biliary colic symptoms. Patient was also found to be at 8 weeks and 5 days of gestational age. 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 General surgery recommended medical management and no surgical intervention since the patient is . Patient was on pain medications and was placed on NPO. She received one dose of zosyn in ED but abx was not continued since pt's had no fever and wbc was normal. Today, patient reports her abdominal pain, nausea, and vomiting have resolved. Patient tolerated po and medically stable to discharge home with f/u appointment with Dr. Davison on 12/25/17 at 1:40 pm. Patient with hx gestational DMII, has a1c 7.3 on 12/14/17 and currently at first trimester . Will start glipizide ER 2.5 mg po qd. Repeat A1C was sent. patient states it's unplanned and she will decide along with her partner about the future of this . Patients urine has small leukocytes and states she had dysuria 3 days ago but resolved. Patient was given macrobid 500 mg po bid x 5 days and urine cx was sent. Patient reports chronic diarrhea x 6 months. Advised to f/u outpatient. Discharge Exam - Head Exam Head Exam: ATRAUMATIC, NORMOCEPHALIC - Eye Exam Eye Exam: Normal appearance - ENT Exam ENT Exam: Mucous Membranes Moist - Respiratory Exam Respiratory Exam: Clear to PA & Lateral, NORMAL BREATHING PATTERN. absent: Rhonchi, Wheezes, Respiratory Distress - Cardiovascular Exam Cardiovascular Exam: REGULAR RHYTHM, RRR, +S1, +S2 - GI/Abdominal Exam GI & Abdominal Exam: Normal Bowel Sounds, Soft. absent: Guarding, Rebound, Rigid Additional comments: Mild epigastric tenderness - Extremities Exam Extremities exam: normal capillary refill, normal inspection, pedal pulses present - Neurological Exam Neurological exam: Alert, Oriented x3 - Psychiatric Exam Psychiatric exam: Normal Affect, Normal Mood - Skin Skin Exam: Normal Color, Warm Discharge Plan - Discharge Medications Prescriptions: Famotidine [Pepcid] 20 mg PO DAILY #30 tab Glipizide [Glipizide ER] 2.5 mg PO DAILY #30 tab.er.24 Nitrofurantoin Macrocrystals [Macrobid] 100 mg PO BID #10 cap - Follow Up Plan Condition: STABLE Disposition: HOME/ ROUTINE Instructions: Cholecystitis (DC) Additional Instructions: Please follow up at [facility] with Dr. Davison on 12/25/17 at 2 pm. Referrals: [facility] [Provider Group] [facility] [Provider Group] Maggi Holland MD [Primary Care Provider] -
== END 2017-12-18 13:07 | disposition home or self-care (01) | DRG 886 ==
LOC: H.ER 05:27 → H.ERHOLD 11:11 → H.MEDSURG1 13:19
PROVIDERS: ADMIT Internal Medicine; ATTEND Internal Medicine
DX: O99.611 Diseases of the digestive system complicating pregnancy, first trimester (principal); K75.81 Nonalcoholic steatohepatitis (NASH); O09.521 Supervision of elderly multigravida, first trimester; O24.911 Unspecified diabetes mellitus in pregnancy, first trimester; Z3A.08 8 weeks gestation of pregnancy; O23.41 Unspecified infection of urinary tract in pregnancy, first trimester; K52.9 Noninfective gastroenteritis and colitis, unspecified; O20.8 Other hemorrhage in early pregnancy; O99.211 Obesity complicating pregnancy, first trimester; K80.20 Calculus of gallbladder without cholecystitis without obstruction